=== PATIENT | female | born 1950 | race Caucasian/White ===

== ENCOUNTER 2016-07-20 10:31 | Emergency (ER) | payer MEDICARE | END 2016-07-20 15:55 | disposition short-term general hospital (02) | LOC: ER1 10:31 | DX: S22.31XA Fracture of one rib, right side, initial encounter for closed fracture (principal); S12.100A Unspecified displaced fracture of second cervical vertebra, initial encounter for closed fracture; S12.200A Unspecified displaced fracture of third cervical vertebra, initial encounter for closed fracture; W01.198A Fall on same level from slipping, tripping and stumbling with subsequent striking against other object, initial encounter; Y92.009 Unspecified place in unspecified non-institutional (private) residence as the place of occurrence of the external cause; I10 Essential (primary) hypertension; G40.909 Epilepsy, unspecified, not intractable, without status epilepticus; Z79.899 Other long term (current) drug therapy | CPT/HCPCS: 70450; 71101; 72125; 96374; 96375; 99284; J2270; J2405 ==

== ENCOUNTER → 2021-03-23 | Outpatient (CLI) | payer MEDICARE, OTHER | LOC: KOH-I 13:33 | DX: E87.0 Hyperosmolality and hypernatremia (principal) | CPT/HCPCS: 70450 ==